=== PATIENT | female | born 1940 | race Asian ===

== ENCOUNTER 2016-08-19 20:05 | Observation (INO) | payer OTHER ==
[~2016-08-19] VITALS: Ht 167.6 cm; Wt 66.9 kg
[2016-08-19] VITALS (8 sets, daily range): BP systolic 132–201; BP diastolic 78–113; TEMP 98.4; Ht 167.6 cm; Wt 66.9 kg
[2016-08-19 21:18] LABS: PLATELET COUNT 205 K/uL (152-353)
[2016-08-19 21:37] LABS: PARTIAL THROMBOPLASTIN TIME 23.4 SECONDS (24.5-33.6)
[2016-08-20] VITALS: BP 157/93; TEMP 98.7
[2016-08-20 04:00] VITALS: BP 150/94; TEMP 98.7
[2016-08-20 08:00] VITALS: BP 169/100; TEMP 98.3
[2016-08-20 12:00] VITALS: BP 159/92; TEMP 98.2
== END 2016-08-20 15:10 | disposition home or self-care (01) ==
LOC: ED 20:05 → MED/SURG 21:00
PROVIDERS: ADMIT Family Medicine
DX: R07.89 Other chest pain (principal); F41.8 Other specified anxiety disorders; I10 Essential (primary) hypertension
CPT/HCPCS: 36415; 80053; 82550; 84484; 85027; 85610; 85730; 93005; 94760; 96374; 99220; 99284; G0378; J1650; J2060

== ENCOUNTER 2016-09-28 12:16 | Outpatient (CLI) | payer OTHER | END 2016-09-28 12:20 | disposition short-term general hospital (02) | LOC: AMB 12:16 | DX: M54.2 Cervicalgia (principal); M54.89 Other dorsalgia; V49.88XA Car occupant (driver) (passenger) injured in other specified transport accidents, initial encounter; Y92.488 Other paved roadways as the place of occurrence of the external cause | CPT/HCPCS: A0425; A0429 ==

== ENCOUNTER 2016-09-28 12:20 | Emergency (ER) | payer OTHER ==
[~2016-09-28] VITALS: Ht 167.6 cm; Wt 65.8 kg
[2016-09-28 12:20] VITALS: TEMP 98
[2016-09-28 15:00] VITALS: BP 148/98
== END 2016-09-28 15:15 | disposition home or self-care (01) ==
LOC: ED 12:20
DX: S00.83XA Contusion of other part of head, initial encounter (principal); S10.83XA Contusion of other specified part of neck, initial encounter; S30.0XXA Contusion of lower back and pelvis, initial encounter; V49.9XXA Car occupant (driver) (passenger) injured in unspecified traffic accident, initial encounter; Y93.89 Activity, other specified; Y92.89 Other specified places as the place of occurrence of the external cause; Y99.8 Other external cause status; M47.897 Other spondylosis, lumbosacral region
CPT/HCPCS: 96372; 99283; J1885; L0120

== ENCOUNTER 2016-11-24 14:38 | Emergency (ER) | payer OTHER ==
[~2016-11-24] VITALS: Ht 167.6 cm; Wt 65.8 kg
[2016-11-24 15:35] LABS: PLATELET COUNT 196 K/uL (152-353)
[2016-11-24 15:45] LABS: POTASSIUM 3.6 mmol/L (3.6-5.2)
[2016-11-24 17:52] VITALS: BP 102/61; TEMP 98
== END 2016-11-24 17:52 | disposition home or self-care (01) ==
LOC: ED 14:38
DX: I10 Essential (primary) hypertension (principal); F41.8 Other specified anxiety disorders
CPT/HCPCS: 36415; 80053; 81000; 85027; 99283

== ENCOUNTER 2017-11-26 20:27 | Emergency (ER) | payer OTHER ==
[~2017-11-26] VITALS: Ht 167.6 cm; Wt 65.8 kg
[2017-11-27 00:03] VITALS: BP 165/98; TEMP 98.2
== END 2017-11-27 00:03 | disposition home or self-care (01) ==
LOC: ED 20:27
PROC: 0HQ0XZZ Repair Scalp Skin, External Approach (ICD-10-PCS; principal; 2017-11-26)
DX: S01.01XA Laceration without foreign body of scalp, initial encounter (principal); W17.89XA Other fall from one level to another, initial encounter; Y93.89 Activity, other specified; Y92.89 Other specified places as the place of occurrence of the external cause
CPT/HCPCS: 36415; 90471; 90715; 99284

== ENCOUNTER 2017-12-06 16:06 | Emergency (ER) | payer OTHER ==
[~2017-12-06] VITALS: Ht 167.6 cm; Wt 65.8 kg
[2017-12-06 16:10] VITALS: TEMP 98.1
[2017-12-06 16:38] VITALS: BP 168/78
== END 2017-12-06 16:38 | disposition home or self-care (01) ==
LOC: ED 16:06
DX: Z48.02 Encounter for removal of sutures (principal)

== ENCOUNTER 2018-05-28 14:36 | Outpatient (CLI) | payer OTHER | END 2018-05-28 23:09 | disposition home or self-care (01) | LOC: MAMMO 14:36 | DX: N63.23 Unspecified lump in the left breast, lower outer quadrant (principal) ==

== ENCOUNTER 2018-06-04 12:24 | Outpatient (CLI) | payer OTHER ==
[~2018-06-04] VITALS: Ht 30.5 cm; Wt 0.5 kg
== END 2018-06-04 19:28 | disposition home or self-care (01) ==
LOC: US 12:24
DX: N63.20 Unspecified lump in the left breast, unspecified quadrant (principal)

== ENCOUNTER 2020-01-05 09:12 | Emergency (ER) | payer OTHER ==
[~2020-01-05] VITALS: Ht 167.6 cm; Wt 65.8 kg
[2020-01-05 09:30] VITALS: TEMP 98.2
[2020-01-05 11:30] VITALS: BP 142/84
== END 2020-01-05 11:42 | disposition home or self-care (01) ==
LOC: ED 09:12
DX: M75.52 Bursitis of left shoulder (principal)
CPT/HCPCS: 96372; 99283; J1885; J2930

== ENCOUNTER 2020-07-07 13:57 | Emergency (ER) | payer OTHER ==
[~2020-07-07] VITALS: Ht 167.6 cm; Wt 56.7 kg
[2020-07-07 14:59] LABS: POTASSIUM 5.1 mmol/L (3.6-5.2); SODIUM 129 mmol/L (136-145)
[2020-07-07 15:00] LABS: PLATELET COUNT 275 K/uL (152-353)
[2020-07-07 16:50] VITALS: BP 116/37; TEMP 97
== END 2020-07-07 16:50 | disposition short-term general hospital (02) ==
LOC: ED 13:57
PROVIDERS: Family Medicine
DX: N17.8 Other acute kidney failure (principal)
CPT/HCPCS: 80053; 82550; 82553; 83605; 84484; 85027; 96360; 96361; 99284

== ENCOUNTER 2020-08-05 11:45 | Emergency (ER) | payer OTHER ==
[~2020-08-05] VITALS: Ht 167.6 cm; Wt 56.7 kg
[2020-08-05 11:53] VITALS: TEMP 97.5
[2020-08-05 12:50] LABS: PLATELET COUNT 120 K/uL (152-353); POTASSIUM 3.5 mmol/L (3.6-5.2); SODIUM 137 mmol/L (136-145)
[2020-08-05 13:06] LABS: PARTIAL THROMBOPLASTIN TIME 33.4 SECONDS (24.5-33.6)
[2020-08-05 14:24] VITALS: BP 128/84
== END 2020-08-05 14:25 | disposition home or self-care (01) ==
LOC: ED 11:45
PROVIDERS: Emergency Medicine
DX: G45.8 Other transient cerebral ischemic attacks and related syndromes (principal); R53.1 Weakness; Z03.818 Encounter for observation for suspected exposure to other biological agents ruled out; W18.39XA Other fall on same level, initial encounter; Y92.89 Other specified places as the place of occurrence of the external cause
CPT/HCPCS: 80053; 83880; 84484; 85027; 85610; 85730; 87502; 87635; 93005; 99283; U0003